=== PATIENT | female | born 1935 | race Caucasian/White ===

== ENCOUNTER 2025-08-06 07:55 | Inpatient (IN) | payer OTHER, MEDICAID ==
[2025-08-06] VITALS (11 sets, daily range): BP systolic 118–142; BP diastolic 41–102; PULSE 51–87; RESP 12–27; TEMP 36.7516–37; O2SAT 92–100
[~2025-08-06] VITALS: Ht 152.4 cm; Wt 78.3 kg
[2025-08-06] MEDS: AZITHROMYCIN 500MG/250ML 250 ML IV ONE (08:12)
[2025-08-06] MEDS: METHYLPREDNISOLONE SOD SUCC 125MG/2ML (ACT-O-VIAL) IV ONE (08:12)
[2025-08-06] MEDS: FUROSEMIDE 40MG/4ML VIAL IV ONE (08:12)
[2025-08-06 08:20] LABS: BASOPHILS % 0.8 % (0.0-2.0); EOSINOPHILS % 1.3 % (0.0-5.0); HEMATOCRIT. 35.6 % (36.0-48.0); HEMOGLOBIN. 11.7 g/dL (12.0-16.0); LYMPHOCYTES % 20.7 % (20.0-50.0); MEAN PLATELET VOLUME 7.4 fl (7.4-10.4); MONOCYTES % 4.9 % (2.0-8.0); NEUTROPHILS % 72.3 % (40.0-76.0); PLATELET 224 x1000/uL (130-400); RED BLOOD CELL COUNT 3.68 mill/uL (4.2-5.4); RED CELL DISTRIBUTION WIDTH 15.5 % (11.6-14.6)
[2025-08-06 08:37] LABS: CREATININE 1.9 mg/dL (0.6-1.0); UREA NITROGEN BLOOD 24 mg/dL (9-23)
[2025-08-06 08:38] LABS: PROTEIN TOTAL 7.0 g/dL (6.0-8.3)
[2025-08-06 08:39] LABS: ASPARTATE AMINOTRANSFERASE 29 IU/L (<34); BILIRUBIN DIRECT 0.1 mg/dL (<=3.0); BILIRUBIN TOTAL 0.4 mg/dL (0.1-1.0)
[2025-08-06 08:40] LABS: TROPONIN I HIGH SENSITIVITY 111 ng/L (3.0-34)
[2025-08-06] MEDS: MAGNESIUM 2 G PREMIX 50 ML IV ONE (09:02)
[2025-08-06] MEDS: ALBUTEROL (0.083%) 2.5MG/3ML NEB HHN SCH (09:16)
[2025-08-06] MEDS: IPRATROPIUM BROMIDE (0.02%) 0.5MG/2.5ML NEB HHN SCH (09:17)
[2025-08-06] MEDS: ONDANSETRON HCL 4MG/2ML INJ IV SCH (09:18)
[2025-08-06 09:47] LABS: INR 1.0
[2025-08-06 10:06] LABS: CREATININE 1.8 mg/dL (0.6-1.0); UREA NITROGEN BLOOD 27 mg/dL (9-23)
[2025-08-06 10:07] LABS: PROTEIN TOTAL 6.2 g/dL (6.0-8.3)
[2025-08-06 10:08] LABS: ASPARTATE AMINOTRANSFERASE 16 IU/L (<34); BILIRUBIN TOTAL 0.3 mg/dL (0.1-1.0)
[2025-08-06 10:17] LABS: TROPONIN I HIGH SENSITIVITY 601 ng/L (3.0-34)
[2025-08-06 10:26] LABS: BG BASE EXCESS -1.6 mmol/L (-2.0-3.0); BG CARBOXYHEMOGLOBIN 1.8 % (0.5-1.5); BG DEOXYHEMOGLOBIN 1.3 % (0.0-5.0); BG FRACTION INSPIRED OXYGEN 30; BG HCO3 ACT 23.2 mmol/L (21.0-28.0); BG METHEMOGLOBIN 0.3 % (0.5-1.5); BG OXYGEN SATURATION 98.7 % (94.0-98.0); BG OXYHEMOGLOBIN 96.6 % (94.0-98.0); BG PCO2 39.5 mmHg (32.0-45.0); BG PH 7.387 (7.350-7.450); BG PO2 123.1 mmHg (83.0-108.0); BG SAMPLE SITE LEFT BRACHIAL; BG TOTAL HEMOGLOBIN 12.1 g/dL (12.0-16.0); BG VENT MODE MASK - BIPAP; BG VENT RATE 14.0 set
[2025-08-06] MEDS ORDERED: IPRATROPIUM/ALBUTEROL 0.5-3(2.5)MG/3ML NEB HHN PRN (11:00)
[2025-08-06] MEDS ORDERED: ACETAMINOPHEN 325MG TABLET PO PRN (11:00)
[2025-08-06] MEDS: CEFTRIAXONE 1GM/50ML 50 ML IV NR (11:06)
[2025-08-06] MEDS: ASPIRIN 81MG TABLET PO SCH (11:45)
[2025-08-06] MEDS: IPRATROPIUM/ALBUTEROL 0.5-3(2.5)MG/3ML NEB HHN SCH (14:14)
[2025-08-06] MEDS: METHYLPREDNISOLONE SOD SUCC 125MG/2ML (ACT-O-VIAL) IV SCH (16:15)
[2025-08-06] MEDS: ENOXAPARIN 80MG/0.8ML SYR SUBCUT SCH (17:32)
[2025-08-06] MEDS: ATORVASTATIN CALCIUM 40MG TABLET PO SCH (21:20)
[2025-08-06] MEDS: ACETAMINOPHEN 325MG TABLET PO PRN (21:21)
[2025-08-06] MEDS: METHYLPREDNISOLONE SOD SUCC 40MG/ML (ACT-O-VIAL) IV SCH (21:22)
[2025-08-07] VITALS (14 sets, daily range): BP systolic 110–155; BP diastolic 39–82; PULSE 52–91; RESP 14–21; TEMP 36.2–37.1; O2SAT 89–99
[2025-08-07 01:24] LABS: CREATINE KINASE MB FRACTION 10.5 ng/mL (0.5-3.6)
[2025-08-07 01:48] LABS: TROPONIN I HIGH SENSITIVITY 2532 ng/L (3.0-34)
[2025-08-07] MEDS: ASPIRIN 81MG TABLET PO NR (02:25)
[2025-08-07 06:12] LABS: CREATININE 1.5 mg/dL (0.6-1.0); TRIGLYCERIDE 71.0 mg/dL (0-150); UREA NITROGEN BLOOD 34.0 mg/dL (9-23)
[2025-08-07 06:13] LABS: LDL CHOLESTEROL 62.0 mg/dL (5-100)
[2025-08-07 06:15] LABS: T4 FREE 1.5 ng/dL (0.89-1.76)
[2025-08-07 06:19] LABS: TROPONIN I HIGH SENSITIVITY 2417 ng/L (3.0-34)
[2025-08-07 06:23] LABS: HEMATOCRIT. 35.8 % (36.0-48.0); HEMOGLOBIN. 11.7 g/dL (12.0-16.0); MEAN PLATELET VOLUME 7.4 fl (7.4-10.4); PLATELET 168 x1000/uL (130-400); RED BLOOD CELL COUNT 3.76 mill/uL (4.2-5.4); RED CELL DISTRIBUTION WIDTH 14.4 % (11.6-14.6)
[2025-08-07 08:27] LABS: INFLUENZA TYPE A Presumptive Negative (Pres. Neg.); RESPIRATORY SYNCYTIAL VIRUS Not Detected (Not Detectd)
[2025-08-07 08:31] LABS: INFLUENZA TYPE B Presumptive Negative (Pres. Neg.)
[2025-08-07] MEDS: FUROSEMIDE 40MG/4ML VIAL IVP SCH (08:46)
[2025-08-07] MEDS: ONDANSETRON HCL 4MG/2ML INJ IV PRN (08:46)
[2025-08-07] MEDS: FAMOTIDINE 20MG/2ML VIAL IV SCH (08:46)
[2025-08-07] MEDS ORDERED: AZITHROMYCIN 500MG/250ML 250 ML IV SCH (11:00)
[2025-08-07] MEDS ORDERED: CEFTRIAXONE 1GM/50ML 50 ML IV SCH (11:00)
[2025-08-07] MEDS: CEFTRIAXONE 1GM/50ML 50 ML IV SCH (11:29)
[2025-08-07] MEDS: AZITHROMYCIN 500MG/250ML 250 ML IV SCH (12:29)
[2025-08-07 19:17] LABS: BAND% 2.0 % (1.0-6.0); LYMPHOCYTES % MANUAL 8.0 % (20.0-60.0); NEUTROPHILS % MANUAL 90.0 % (45.0-75.0); PLATELET ESTIMATE NORMAL
[2025-08-07] MEDS: GUAIFENESIN 600MG ER TABLET PO SCH (20:24)
[2025-08-08] VITALS: BP 130/47; PULSE 63; RESP 16
[2025-08-08 01:47] VITALS: PULSE 82; RESP 16; O2SAT 96
[2025-08-08 02:00] VITALS: BP 138/50; PULSE 83; RESP 18; O2SAT 96
[2025-08-08 03:00] VITALS: PULSE 70; RESP 16; O2SAT 96
[2025-08-08 04:00] VITALS: BP 136/61; PULSE 83; RESP 14; TEMP 36.9; O2SAT 94
[2025-08-08 05:00] VITALS: PULSE 83; RESP 20; O2SAT 99
[2025-08-08] MEDS ORDERED: METHYLPREDNISOLONE SOD SUCC 40MG/ML (ACT-O-VIAL) IV SCH (09:00)
== END 2025-08-08 06:40 | disposition short-term general hospital (02) | DRG 280 ==
LOC: ER 07:55 → 5EST 09:55 → EDBEDREQ 09:57 → EDBEDREQTM 09:57 → ENRESERV 11:41
PROVIDERS: ADMIT Internal Medicine; ATTEND Internal Medicine
PROC: 5A09357 Assistance with Respiratory Ventilation, Less than 24 Consecutive Hours, Continuous Positive Airway Pressure (ICD-10-PCS; principal; 2025-08-06)
DX: I13.0 Hypertensive heart and chronic kidney disease with heart failure and stage 1 through stage 4 chronic kidney disease, or unspecified chronic kidney disease (principal); I50.21 Acute systolic (congestive) heart failure; I21.4 Non-ST elevation (NSTEMI) myocardial infarction; J96.01 Acute respiratory failure with hypoxia; R18.8 Other ascites; Z66 Do not resuscitate; I27.20 Pulmonary hypertension, unspecified; I27.81 Cor pulmonale (chronic); J44.0 Chronic obstructive pulmonary disease with (acute) lower respiratory infection; N18.9 Chronic kidney disease, unspecified; E03.9 Hypothyroidism, unspecified; D64.9 Anemia, unspecified; I35.0 Nonrheumatic aortic (valve) stenosis; J44.1 Chronic obstructive pulmonary disease with (acute) exacerbation; J20.9 Acute bronchitis, unspecified; D72.829 Elevated white blood cell count, unspecified; K21.9 Gastro-esophageal reflux disease without esophagitis; E87.5 Hyperkalemia; F12.90 Cannabis use, unspecified, uncomplicated; I95.9 Hypotension, unspecified; Z88.0 Allergy status to penicillin; Z87.891 Personal history of nicotine dependence; Z79.899 Other long term (current) drug therapy; Z87.19 Personal history of other diseases of the digestive system; Z86.73 Personal history of transient ischemic attack (TIA), and cerebral infarction without residual deficits; Z79.82 Long term (current) use of aspirin
CPT/HCPCS: 36415; 36600; 71045; 76700; 80048; 80053; 80061; 80076; 82375; 82550; 82553; 82805; 83605; 83735; 83880; 84145; 84439; 84443; 84481; 84484; 85025; 87420; 87804; 93005; 93306; 93970; 94070; 94640; 94660; 94664; 96365; 96367; 99291; J0456; J0696; J1308; J1650; J1938; J2405; J2919; J3475